=== PATIENT | female | born 1975 | race Hispanic/Latino ===

== ENCOUNTER 2023-08-26 14:58 | Emergency (ER) | payer BC ==
[~2023-08-26] VITALS: Ht 165.1 cm; Wt 73.0 kg
[2023-08-26 15:53] LABS: HEMATOCRIT 39.7 % (36-48); MEAN CORPUSCULAR HEMOGLOBIN 28.1 pg (27.0-33.0); MEAN CORPUSCULAR VOLUME 82.7 fL (79-99); RED BLOOD CELL COUNT(AUTO) 4.8 MIL/uL (4.00-5.50); RED CELL DISTRIBUTION WIDTH 13.2 % (11.0-15.5); WHITE BLOOD COUNT (AUTO) 11.2 K/uL (4.8-10.8)
[2023-08-26] MEDS ORDERED: PROCHLORPERAZINE 10MG/2ML INJ IV ONE (16:00)
[2023-08-26] MEDS ORDERED: KETOROLAC 60 MG VIAL (30MG/ML) IM ONE (16:00)
[2023-08-26] MEDS ORDERED: DiphenhydrAMINE HCL 50 MG/ML VIAL IV ONE (16:00)
[2023-08-26 16:03] LABS: CREATININE 0.9 mg/dL (0.5-1.5); POTASSIUM 3.7 mmol/L (3.5-5.1)
[2023-08-26] MEDS ORDERED: IOHEXOL-350 75 ML VIAL IV ONE (16:09)
[2023-08-26 16:13] LABS: ALBUMIN 3.7 g/dL (3.5-5.0); BILIRUBIN,TOTAL 0.4 mg/dL (0.2-1.0); TOTAL PROTEIN, SERUM 8.1 g/dL (6.0-8.3)
[2023-08-26 18:49] VITALS: BP 118/68; PULSE 87; RESP 18; O2SAT 98
== END 2023-08-26 19:48 | disposition home or self-care (01) ==
LOC: EDH 14:58
DX: G43.909 Migraine, unspecified, not intractable, without status migrainosus (principal); E11.9 Type 2 diabetes mellitus without complications; E78.00 Pure hypercholesterolemia, unspecified; I10 Essential (primary) hypertension; F17.200 Nicotine dependence, unspecified, uncomplicated; F12.90 Cannabis use, unspecified, uncomplicated
CPT/HCPCS: 99285; 70496; 70551; 96374; 71045; 96375; 84484; 80053; 85027; 82948; 36415; 70498; 93005; 70450; 96372; J1200; J0780; J1885; Q9967

== ENCOUNTER 2023-11-09 07:45 | Emergency (ER) | payer BC ==
[~2023-11-09] VITALS: Ht 165.1 cm; Wt 76.2 kg
[2023-11-09 09:13] LABS: HEMATOCRIT 38.9 % (36-48); MEAN CORPUSCULAR HEMOGLOBIN 27.4 pg (27.0-33.0); MEAN CORPUSCULAR HGB CONC 33.4 g/dL (32.0-36.0); MEAN CORPUSCULAR VOLUME 82.1 fL (79-99); PLATELET COUNT (AUTO) 246 K/uL (130-400); RED BLOOD CELL COUNT(AUTO) 4.74 MIL/uL (4.00-5.50); RED CELL DISTRIBUTION WIDTH 13.2 % (11.0-15.5); WHITE BLOOD COUNT (AUTO) 8.6 K/uL (4.8-10.8)
[2023-11-09 09:42] LABS: ALBUMIN 3.6 g/dL (3.5-5.0); BILIRUBIN,TOTAL 0.3 mg/dL (0.2-1.0); CREATININE 0.7 mg/dL (0.5-1.5); POTASSIUM 4.1 mmol/L (3.5-5.1); TOTAL PROTEIN, SERUM 7.9 g/dL (6.0-8.3)
[2023-11-09] MEDS ORDERED: IOHEXOL 350 MG/ML 100ML INFUS..BTL IV ONE (09:58)
[2023-11-09] MEDS ORDERED: KETOROLAC 15MG/ML VIAL (15MG/ML) IV ONE (10:00)
[2023-11-09 10:19] LABS: BAND NEUTROPHILS % (MANUAL) 1 % (0-2); EOSINOPHILS % (MANUAL) 1 % (1-6); LYMPHOCYTES % (MANUAL) 26 % (22-44); MAN.DIFF COMMENT-IMPRESSION MANUAL DIFFERENTIAL; MONOCYTES % (MANUAL) 11 % (2-9); MYELOCYTES % 1 % (0-0); SEGMENTED NEUTROPHILS % 60 % (40-70); TOTAL CELLS COUNTED 100
[2023-11-09 10:20] LABS: PLATELET MORPHOLOGY COMMENT ADEQUATE
[2023-11-09 12:58] VITALS: BP 109/58; PULSE 81; RESP 16; O2SAT 0
== END 2023-11-09 14:21 | disposition home or self-care (01) ==
LOC: EDH 07:45
DX: S39.011A Strain of muscle, fascia and tendon of abdomen, initial encounter (principal); I10 Essential (primary) hypertension; E11.9 Type 2 diabetes mellitus without complications; E78.00 Pure hypercholesterolemia, unspecified; F17.200 Nicotine dependence, unspecified, uncomplicated; Z98.890 Other specified postprocedural states; Y08.89XA Assault by other specified means, initial encounter; Y93.89 Activity, other specified; Y92.89 Other specified places as the place of occurrence of the external cause; Y99.8 Other external cause status
CPT/HCPCS: 99285; 71260; 96374; 80053; 85025; 36415; 74177; J1885; Q9967

== ENCOUNTER 2024-07-28 17:48 | Emergency (ER) | payer BC, OTHER ==
[~2024-07-28 17:48] MED LIST: ACET-2079 PO; CYCL5TAB PO; IBUP-2070 PO
== END 2024-07-28 18:07 | disposition home or self-care (01) ==
LOC: EDH 17:48
DX: S61.214A Laceration without foreign body of right ring finger without damage to nail, initial encounter (principal); S61.216A Laceration without foreign body of right little finger without damage to nail, initial encounter; Z53.21 Procedure and treatment not carried out due to patient leaving prior to being seen by health care provider; X99.8XXA Assault by other sharp object, initial encounter; Y93.89 Activity, other specified; Y92.89 Other specified places as the place of occurrence of the external cause; Y99.8 Other external cause status

== ENCOUNTER 2024-08-05 08:27 | Emergency (ER) | payer SELFPAY ==
[~2024-08-05] VITALS: Ht 165.1 cm; Wt 70.8 kg
[2024-08-05] MEDS: morPHINE 4 MG SYG IVP ONE (08:43)
[2024-08-05] MEDS ORDERED: ACET-2079 PO (10:26)
[2024-08-05] MEDS ORDERED: MELO-108 PO (10:27)
[2024-08-05] MEDS: hydroMORPHone 1 MG INJ IVP ONE (12:11)
[2024-08-05 12:53] VITALS: BP 122/75; PULSE 71; RESP 16; TEMP 98.1; O2SAT 99
== END 2024-08-05 13:07 | disposition home or self-care (01) ==
LOC: EDH 08:27
DX: S00.03XA Contusion of scalp, initial encounter (principal); R10.2 Pelvic and perineal pain; M54.50 Low back pain, unspecified; E78.00 Pure hypercholesterolemia, unspecified; E11.9 Type 2 diabetes mellitus without complications; I10 Essential (primary) hypertension; M79.7 Fibromyalgia; F17.200 Nicotine dependence, unspecified, uncomplicated; Z79.899 Other long term (current) drug therapy; Z98.890 Other specified postprocedural states; Z79.84 Long term (current) use of oral hypoglycemic drugs; W01.0XXA Fall on same level from slipping, tripping and stumbling without subsequent striking against object, initial encounter; Y93.89 Activity, other specified; Y92.098 Other place in other non-institutional residence as the place of occurrence of the external cause; Y99.8 Other external cause status
CPT/HCPCS: 99285; 70450; 96374; 96375; 72131; 72192; J1171; J2270